=== PATIENT | male | born 1995 | race Caucasian/White ===

== ENCOUNTER 2022-07-17 20:27 | Emergency (ER) | payer OTHER ==
[~2022-07-17] VITALS: Ht 182.9 cm; Wt 81.7 kg
[2022-07-17] MEDS ORDERED: FLOMAX0.4 MG PO (22:07)
[2022-07-17] MEDS ORDERED: ONDANSETRON ODT8 MG PO (22:07)
[2022-07-17] MEDS ORDERED: PERCOCET 5-3251 EACH PO (22:07)
[2022-07-17] MEDS ORDERED: KETOROLAC TROME10 MG PO (22:07)
== END 2022-07-17 22:38 | disposition home or self-care (01) ==
LOC: ED 20:27
DX: N13.2 Hydronephrosis with renal and ureteral calculous obstruction (principal)
CPT/HCPCS: 36415; 74176; 80053; 81001; 85025; 96374; 96375; 99284-25; A9270; J1170; J1885; J2405; J7121